=== PATIENT | female | born 1955 | race Two or more races ===

== ENCOUNTER 2021-08-19 13:16 | Emergency (ER) | payer OTHER ==
[~2021-08-19] VITALS: Ht 165.1 cm; Wt 83.5 kg
[~2021-08-19 13:16] MED LIST: ALTACE2.5 MG PO; ALTACE5 MG; ASA325 M1 PO; ASA81 MG; KOMBIGLYZE XR1 EAC2; LIPITOR40 MG; LIPITOR40 MG PO; LIPITOR80 MG; NABUMETONE500 MG PO; PERCOCET 5/321 UDTAB PO; PLAVIX75 MG; TOPROL XL25 MG PO
[2021-08-19] MEDS ORDERED: NIFEDIPINE20 MG (14:05)
[2021-08-19] MEDS ORDERED: ALTACE10 MG PO (14:05)
[2021-08-19] MEDS ORDERED: TOPROL XL50 M1 PO (14:06)
[2021-08-19] MEDS ORDERED: JANUVIA100 MG PO (14:10)
[2021-08-19] MEDS ORDERED: KETO10TA2 PO (19:33)
== END 2021-08-19 20:24 | disposition home or self-care (01) ==
LOC: ER 13:16
DX: R07.89 Other chest pain (principal); E11.9 Type 2 diabetes mellitus without complications; Z79.84 Long term (current) use of oral hypoglycemic drugs; I10 Essential (primary) hypertension; Z91.018 Allergy to other foods

== ENCOUNTER 2022-10-13 07:15 | Outpatient (CLI) | payer OTHER ==
[~2022-10-13 07:15] MED LIST changes: +ALTACE10 MG PO; +JANUVIA100 MG PO; +KETO10TA2 PO; +NIFEDIPINE20 MG; +TOPROL XL50 M1 PO
== END 2022-10-13 07:16 | disposition home or self-care (01) ==
LOC: NUCLEAR 07:15
PROVIDERS: ATTEND Internal Medicine Cardiovascular Disease
DX: I25.10 Atherosclerotic heart disease of native coronary artery without angina pectoris (principal)

== ENCOUNTER 2024-05-06 09:32 | Emergency (ER) | payer OTHER ==
[~2024-05-06] VITALS: Ht 165.1 cm; Wt 68.0 kg
[~2024-05-06 09:32] MED LIST changes: +DOLOGESIC 500-1 EACH PO; +VOLTAREN ARTHRI20 GM TOP
[2024-05-06] MEDS ORDERED: SYNJARDY XR 251 EACH PO (10:07)
[2024-05-06] MEDS ORDERED: TRULICITY0.75 MG/0. SQ (10:07)
[2024-05-06] MEDS ORDERED: DIPHENHYDRAMINE HCL 50 MG/ML VIAL 1ML IM STA (12:03)
[2024-05-06] MEDS ORDERED: BETAMETHASONE V15 GM TOP (12:07)
== END 2024-05-06 12:26 | disposition home or self-care (01) ==
LOC: ER 09:34
DX: L30.8 Other specified dermatitis (principal); E11.9 Type 2 diabetes mellitus without complications; Z79.84 Long term (current) use of oral hypoglycemic drugs; I10 Essential (primary) hypertension; Z91.018 Allergy to other foods